=== PATIENT | male | born 1940 | race African-American/Black ===

== ENCOUNTER 2022-07-13 11:11 | Outpatient (CLI) | payer OTHER, SELFPAY ==
[2022-07-13 20:12] LABS: Alanine Aminotransferase 19 U/L (6-50); Albumin Level 4.5 g/dL (3.5-5.1); Alkaline Phosphatase 95 U/L (38-126); Anion Gap 10 mmol/L (8-16); Aspartate Amino Transferase 39 U/L (17-59); Bilirubin,Total 0.4 mg/dL (0.2-1.3); Blood Urea Nitrogen 19 mg/dL (9-20); Calcium 9.4 mg/dL (8.4-10.2); Carbon Dioxide 27 mmol/L (22-30); Chloride 99 mmol/L (98-107); Cholesterol 267 mg/dL (0-200); Estimated Glomerular Filt Rate > 60; Glucose 120 mg/dL (65-110); HDL Direct 51 mg/dL; Hemoglobin A1C 6.1 % (<5.7); Potassium 4.9 mmol/L (3.4-5.0); Sodium 136 mmol/L (137-145); Triglycerides 160 mg/dL (<150)
[2022-07-13 20:32] LABS: LDL Cholesterol Direct 133 mg/dL
== END 2022-07-13 11:12 | disposition home or self-care (01) ==
PROVIDERS: PCP Family Medicine; Visit Provider Family Medicine
DX: E78.5 Hyperlipidemia, unspecified (principal); E11.9 Type 2 diabetes mellitus without complications; I10 Essential (primary) hypertension
CPT/HCPCS: 36415; 80053; 80061; 83036

== ENCOUNTER 2023-05-11 09:51 | Outpatient (CLI) | payer OTHER, SELFPAY ==
[2023-05-11 12:14] LABS: Alanine Aminotransferase 17 U/L (6-50); Albumin Level 4.3 g/dL (3.5-5.1); Alkaline Phosphatase 72 U/L (38-126); Anion Gap 7 mmol/L (8-16); Aspartate Amino Transferase 45 U/L (17-59); Bilirubin,Total 0.6 mg/dL (0.2-1.3); Blood Urea Nitrogen 19 mg/dL (9-20); Calcium 9.3 mg/dL (8.4-10.2); Carbon Dioxide 28 mmol/L (22-30); Chloride 101 mmol/L (98-107); Cholesterol 195 mg/dL (0-200); Estimated Glomerular Filt Rate > 60; Glucose 112 mg/dL (65-110); HDL Direct 59 mg/dL; Potassium 4.7 mmol/L (3.4-5.0); Sodium 136 mmol/L (137-145); Triglycerides 98 mg/dL (<150)
[2023-05-11 12:24] LABS: LDL Cholesterol Direct 91 mg/dL
[2023-05-11 12:45] LABS: Creatinine Urine 98.3 mg/dL
[2023-05-11 12:50] LABS: Hemoglobin A1C 5.4 % (<5.7); MALB Creatinine Ratio 23.6 mg/g (0-30); Microalbumin Urine Random 23.2 mg/L (0-16.7)
== END 2023-05-11 09:52 | disposition home or self-care (01) ==
PROVIDERS: PCP Family Medicine; Visit Provider Family Medicine
DX: E11.9 Type 2 diabetes mellitus without complications (principal); Z13.220 Encounter for screening for lipoid disorders; Z13.228 Encounter for screening for other metabolic disorders
CPT/HCPCS: 36415; 80053; 80061; 82043; 83036

== ENCOUNTER 2024-06-22 10:28 | Outpatient (CLI) | payer OTHER, SELFPAY ==
[2024-06-22 19:01] LABS: Alanine Aminotransferase 15 U/L (6-50); Albumin Level 4.4 g/dL (3.5-5.1); Alkaline Phosphatase 99 U/L (38-126); Anion Gap 9 mmol/L (4-12); Aspartate Amino Transferase 42 U/L (17-59); Bilirubin,Total 0.5 mg/dL (0.2-1.3); Blood Urea Nitrogen 13 mg/dL (9-20); Calcium 9.3 mg/dL (8.4-10.2); Carbon Dioxide 27 mmol/L (22-30); Chloride 96 mmol/L (98-107); Cholesterol 171 mg/dL (0-200); Estimated Glomerular Filt Rate > 60; Glucose 114 mg/dL (65-110); HDL Direct 57 mg/dL; Potassium 4.9 mmol/L (3.4-5.0); Sodium 132 mmol/L (137-145); Triglycerides 95 mg/dL (<150)
[2024-06-22 19:12] LABS: LDL Cholesterol Direct 81 mg/dL
[2024-06-22 19:22] LABS: Creatinine Urine 128.7 mg/dL
[2024-06-22 19:26] LABS: MALB Creatinine Ratio 68.7 mg/g (0-30); Microalbumin Urine Random 88.4 mg/L (0-16.7)
[2024-06-22 21:11] LABS: Hemoglobin A1C 6.1 % (<5.7)
== END 2024-06-22 10:29 | disposition home or self-care (01) ==
LOC: ANHGOSHLAB 10:29
PROVIDERS: PCP Family Medicine; Visit Provider Family Medicine
DX: E11.9 Type 2 diabetes mellitus without complications (principal); Z13.220 Encounter for screening for lipoid disorders; Z13.228 Encounter for screening for other metabolic disorders
CPT/HCPCS: 36415; 80053; 80061; 82043; 83036

== ENCOUNTER 2024-07-24 09:54 | Outpatient (CLI) | payer OTHER, SELFPAY ==
[2024-07-24 20:11] LABS: Anion Gap 4 mmol/L (4-12); Blood Urea Nitrogen 20 mg/dL (9-20); Calcium 9.3 mg/dL (8.4-10.2); Carbon Dioxide 27 mmol/L (22-30); Chloride 102 mmol/L (98-107); Estimated Glomerular Filt Rate > 60; Glucose 124 mg/dL (65-110); Potassium 4.8 mmol/L (3.4-5.0); Sodium 133 mmol/L (137-145)
== END 2024-07-24 09:55 | disposition home or self-care (01) ==
LOC: ANHGOSHLAB 09:55
PROVIDERS: PCP Family Medicine; Visit Provider Family Medicine
DX: Z13.228 Encounter for screening for other metabolic disorders (principal)
CPT/HCPCS: 36415; 80048

== ENCOUNTER 2025-05-17 09:00 | Outpatient (CLI) | payer OTHER, SELFPAY ==
--- OUTSIDE RECORDS SUMMARY | 2025-05-17 09:20 | XMS_ITS | Clinical Summary ---
Author Organization [facility] Facility Address [address] [place] [id number] Care Team Providers Care Workforce Consultant Name Role Phone Unavailable Primary Care Provider Unavailabl e Social History Tobacco Use Types Packs/Day Years Used Date Smoking Tobacco: Never Assessed Sex and Gender Information Value Date Recorded Sex Assigned at Not on file Legal Sex Male 4:25 PM EDT Gender Identity Not on file Sexual Orientation Not on file Plan of Treatment Health Maintenance Due Date Last Done Comments Pneumococcal Vaccine: 50+ Ye ars (1 of 1 - PCV) 1989 Influenza Vaccine (#1) 2025 Hepatitis B Vaccine Aged Out No longe r eligible based on patient's age to complete this topic Insurance [facility] Medicaid [place]
--- OUTSIDE RECORDS SUMMARY | 2025-05-17 09:20 | XMS_ITS | Clinical Summary ---
Author Organization [facility] Address [address] [place] [address] Care Team Providers Care Accounts Payable Associate Name Role Phone Adriana Bonilla NP Primary Care Provider [phone] Christopher Jackson MD Unavailable [phone] Charles Laboy MD Unavailable Trent Roberson MD Unavailable [phone] Allergies No known active allergies Medications metFORMIN (GLUCOPHAGE) 500 mg tablet Take 1 tablet (500 mg total) by mouth 2 (two) times a day with meals Active amLODIPine (NORVASC) 5 mg tablet Take 1 tablet (5 mg total) by mouth daily 30 tablet 11 5 01/09/20 Active metoprolol XL (TOPROL-XL) 25 mg extended release tablet Take 1 tablet (25 mg total) by mouth nightly 30 tablet 11 5 01/08/20 Active senna-docusate (PERICOLACE) 8.6-50 mg Take 1 tablet by mouth 2 (two) times a day as needed for constipation Active atorvastatin (LIPITOR) 20 mg tablet Take 1 tablet (20 mg total) by mouth nightly 30 tablet 11 5 01/08/20 Active Active Problems Problem Noted Date Diagnosed Date Hypertensive urgency 01/04/2025 Dizziness 01/04/2025 Nausea & vomiting 01/04/2025 Hyponatremia 01/04/2025 Chest pain 01/04/2025 Social History Tobacco Use Types Packs/Day Years Used Date Smoking Tobacco: Never Passive Smoke Exposure: Never Smokeless Tobacco: Never Tobacco Cessation:Counseling Given: No AUDIT-C Answer Date Recorded Q1: How often do you have a drink containing alcohol? Never 01/06/2025 Q2: How many drinks containi ng alcohol do you have on a typical day when you are drinking? Patient does not drink Q3: How often do you have si x or more drinks on one occasion? Less than monthly 01/06/2025 Personal Safety Answer Date Recorded Have you ever been in or are you currently in a harmful physical or emotional relationship or is someone making you feel afraid or unsafe? 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 Gender Identity Not on file Sexual Orientation Not on file Obstetrics History Last Filed Vital Signs Vital Sign Reading Time Taken Comments Blood Pressure 115/70 01/07/2025 7:26 AM CDT Pulse 76 01/07/2025 10:00 AM CDT Temperature 36.8 C (98.2 F) 01/06/2025 11:13 PM CDT Respiratory Rate 16 01/07/2025 7:26 AM CDT Oxygen Saturation 97% 01/07/2025 7:26 AM CDT Inhaled Oxygen Concentration - - Weight 79.4 kg (175 lb 0.7 oz) 01/04/2025 6:18 P M CDT Height 165.1 cm (5' 5) 01/04/2025 6:18 PM CDT Body Mass Index 29.13 01/04/2025 6:18 PM CDT Plan of Treatment Health Maintenance Due Date Last Done Comments Depression Screening 1940 DTaP/Tdap/Td Vaccine (1 - Tdap) 1950 Hepatitis B Screening 1957 Pneumococcal vaccine 65+ (1 of 1 - PCV) 1989 Zoster Vaccine (1 of 2) 1989 Well Visit 65+ 2004 Covid-19 Vaccine (5 - 2024-2 6 season) 2025 12/11/2021, 07/21/2021, 11/19/2020, Additional history exists Influenza Vaccine (#1) 2025 Fall Risk Assessment 01/07/2026 01/07/2025 Insurance [facility] [employer] Care Teams Accounts Payable Associate Relationship Specialty Start Date End Date Adriana Bonilla NP [address] [place] [address] PCP - General Family Medicine 01/04/25 Christopher Jackson MD [address] [place] [address] Consulting Physician Nephrology 01/07/25 Charles Laboy MD [address] [place] [address] Consulting Physician Pulmonary Disease 01/07/25 Trent Roberson MD [address] [place] [address] Consulting Physician Cardiovascular Disease 01/07/25
--- OUTSIDE RECORDS SUMMARY | 2025-05-17 09:20 | XMS_ITS | Clinical Summary ---
Author Organization [facility] Address [address] [place] [address] Phone Care Team Providers Care Binding Folder Machine Name Role Phone Henry Huang MD Primary Care Provider [phone] Allergies No known active allergies Medications lisinopril (PRINIVIL, ZESTRIL) 5 MG Tablet Take 5 mg by mouth daily. Active metFORMIN (GLUCOPHAGE) 500 MG Tablet Take 500 mg by mouth 2 times daily (with meals). Active simvastatin (ZOCOR) 40 MG Tablet Take 40 mg by mouth every evening. Active hydroCHLOROthiaz hebert (MICROZIDE) 12.5 MG Capsule Take 12.5 mg by mouth daily. Active ondansetron (ZOFRAN-ODT) 4 MG TABLET DISPERSIBLE Take 1 Tab by mouth every 6 hours as needed for Nausea - 1st line. 5 Tab 12/14/2019 Active Active Problems No known active problems Social History Tobacco Use Types Packs/Day Years Used Date Smoking Tobacco: Former Alcohol Use Standard Drinks/Week Comments Not Currently 0 (1 standard drink = 0.6 oz pur e alcohol) Sex and Gender Information Value Date Recorded Sex Assigned at Not on file Legal Sex Male 8:56 PM CDT Gender Identity Not on file Sexual Orientation Not on file Last Filed Vital Signs Vital Sign Reading Time Taken Comments Blood Pressure 146/73 12/14/2019 9:30 PM CDT Pulse 108 12/14/2019 9:30 PM CDT Temperature 37.2 C (99 F) 12/14/2019 9:42 PM CDT Respiratory Rate 18 12/14/2019 7:36 PM CDT Oxygen Saturation 92% 12/14/2019 9:30 PM CDT Inhaled Oxygen Concentration - - Weight 77.1 kg (170 lb) 12/14/2019 7:36 PM CDT Height 170.2 cm (5' 7) 12/14/2019 7:36 PM CDT Body Mass Index 26.63 12/14/2019 7:36 PM CDT Plan of Treatment Health Maintenance Due Date Last Done Comments Hepatitis C Virus (HCV) Screening 1940 TdaP Immunization 1940 Pneumococcal Immunization (5 0+ years) (1 of 1 - PCV) 1989 Zoster Immunization (1 of 2) 1989 Respiratory Syncytial Virus (RSV) Immunization (Adult) (1 - 1-dose 75+ series) 2014 Medicare Initial AWV [id number] 12/13/2020 Influenza Immunization (#1) 2025 SARS-COV-2 Immunization ( - season) 2025 Hepatitis B Immunization Aged Out No longer eligible based on patient's age to complete this topic Human Papillomavirus (HPV) Immunization Aged Out No longer eligible b ased on patient's age to complete this topic Meningococcal Immunization (ACWY) Aged Out No longer eligible based on patient's age to complete this topic Rotavirus Immunization Aged Out No lo nger eligible based on patient's age to complete this topic Insurance MEDICARE C [employer] Care Teams Binding Folder Machine Relationship Specialty Start Date End Date Henry Huang MD [address] [place] [address] [address] [place] [address] PCP - General Internal Medicine 12/14/19
[2025-05-17 13:03] LABS: Hematocrit 41.1 % (42.0-52.0); Hemoglobin 13.5 g/dL (14.0-18.0); Immature Granulocyte Percent A 0.3 % (0-0.5); Lymphocytes Absolute Auto 2.53 K/mm3 (0.9-3.2); Mean Corpuscular HGB Conc 32.8 g/dl (32-36); Mean Corpuscular Hemoglobin 30.4 pg (26-34); Mean Corpuscular Volume 92.6 fl (80-100); Nucleated Red Blood Cells Absolute Auto 0.000 K/mm3 (0.0-0.012); Nucleated Red Blood Cells Perc 0.0 % (0.0-0.2); Platelet Count Result 368 k/mm3 (150-375); Red Blood Count 4.44 M/mm3 (4.6-6.20); White Blood Count 8.8 K/mm3 (4.5-10.0)
[2025-05-17 13:10] LABS: Alanine Aminotransferase 15 U/L (6-50); Albumin Level 4.0 g/dL (3.5-5.1); Alkaline Phosphatase 101 U/L (38-126); Anion Gap 8 mmol/L (4-12); Aspartate Amino Transferase 25 U/L (17-59); Bilirubin,Total 0.5 mg/dL (0.2-1.3); Blood Urea Nitrogen 17 mg/dL (9-20); Calcium 9.3 mg/dL (8.4-10.2); Carbon Dioxide 28 mmol/L (22-30); Chloride 101 mmol/L (98-107); Cholesterol 173 mg/dL (0-200); Estimated Glomerular Filt Rate > 60; Glucose 123 mg/dL (65-110); HDL Direct 48 mg/dL; Potassium 4.4 mmol/L (3.4-5.0); Sodium 137 mmol/L (137-145); Total Protein 7.9 g/dL (6.3-8.2); Triglycerides 136 mg/dL (<150)
[2025-05-17 13:32] LABS: MALB Creatinine Ratio 43.8 mg/g (0-30)
[2025-05-17 13:44] LABS: Thyroid Stimulating Hormone Reflex 2.410 uIU/mL (0.465-4.68)
[2025-05-17 16:10] LABS: Hemoglobin A1C 5.6 % (<5.7)
== END 2025-05-17 09:01 | disposition home or self-care (01) ==
PROVIDERS: PCP Nurse Practitioner Family; Visit Provider Nurse Practitioner Family
DX: E78.5 Hyperlipidemia, unspecified (principal); I10 Essential (primary) hypertension; E11.9 Type 2 diabetes mellitus without complications; E55.9 Vitamin D deficiency, unspecified
CPT/HCPCS: 36415; 80053; 80061; 82043; 82306; 83036; 84443; 85025